=== PATIENT | female | born 1960 | race Caucasian/White ===

== ENCOUNTER → 2016-08-01 | Outpatient (CLI) | payer BC | LOC: MC.RAD 07-07 14:00 | DX: Z12.31 Encounter for screening mammogram for malignant neoplasm of breast (principal) ==

== ENCOUNTER → 2017-10-15 | Outpatient (CLI) | payer BC | LOC: MC.RAD 13:52 | DX: Z12.31 Encounter for screening mammogram for malignant neoplasm of breast (principal) ==

== ENCOUNTER 2020-07-04 14:47 | Emergency (ER) | payer BC ==
[~2020-07-04] VITALS: Ht 165.1 cm; Wt 60.5 kg
[2020-07-04] MEDS ORDERED: CEPHALEXIN500 M1 PO (15:54)
[2020-07-04 16:06] VITALS: BP 138/64; PULSE 78; TEMP 97.3
== END 2020-07-04 16:13 | disposition home or self-care (01) ==
LOC: COL.ER 14:47
DX: S61.211A Laceration without foreign body of left index finger without damage to nail, initial encounter (principal); W29.8XXA Contact with other powered hand tools and household machinery, initial encounter; Y93.H2 Activity, gardening and landscaping

== ENCOUNTER → 2020-07-19 | Outpatient (CLI) | payer BC ==
[~2020-07-19] MED LIST: CEPHALEXIN500 M1 PO
[2020-07-19 08:07] VITALS: BP 123/76; PULSE 98; TEMP 98.8
== END ==
LOC: COL.ER 08:02
DX: Z48.02 Encounter for removal of sutures (principal)

== ENCOUNTER → 2020-10-26 | Outpatient (CLI) | payer BC | LOC: COL.RAD 06:52 | DX: S61.221A Laceration with foreign body of left index finger without damage to nail, initial encounter (principal) | CPT/HCPCS: A9585 ==

== ENCOUNTER → 2020-11-03 | Outpatient (CLI) | payer BC | LOC: MC.RAD 07:30 | DX: Z12.31 Encounter for screening mammogram for malignant neoplasm of breast (principal) ==

== ENCOUNTER 2020-11-19 12:45 | Outpatient (RCR) | payer BC | END 2020-11-23 15:49 | disposition home or self-care (01) | LOC: WSOT 12:45 | DX: S61.221A Laceration with foreign body of left index finger without damage to nail, initial encounter (principal) ==